=== PATIENT | male | born 1990 | race Caucasian/White ===

== ENCOUNTER 2018-04-09 07:13 | Day surgery (SDC) | payer OTHER ==
[~2018-04-09 07:13] MED LIST: Buffered Lidocaine 0.9% SYRIN* 5 ML/SYR SYRINGE INTRADERM ONE
[2018-04-09] MEDS ORDERED: Propofol* 10 MG/ML 20 ML BTL ONE (08:00)
[2018-04-09] MEDS ORDERED: Midazolam* 1 MG/ML 2 ML VIAL (2 MG) ONE (08:01)
[2018-04-09] MEDS ORDERED: fentaNYL* 50 MCG/ML 2 ML VIAL (100 MCG VIAL) ONE (08:01)
[2018-04-09] MEDS ORDERED: Ketorolac INJ* 30 MG/ML 1 ML VIAL IV PRN (08:07)
[2018-04-09] MEDS ORDERED: fentaNYL* 50 MCG/ML 2 ML VIAL (100 MCG VIAL) IV PRN (08:07)
[2018-04-09] MEDS ORDERED: Ondansetron INJ* 2 MG/ML VIAL IV PRN (08:07)
[2018-04-09] MEDS ORDERED: Naloxone* 0.4 MG/ML 1 ML VIAL IV PRN (08:07)
[2018-04-09] MEDS ORDERED: Ondansetron INJ* 2 MG/ML VIAL ONE (10:03)
[2018-04-09] MEDS ORDERED: DiMENhydriNATE IV* 50 MG/ML VIAL ONE (10:26)
[2018-04-09] MEDS ORDERED: DiMENhydriNATE IV* 50 MG/ML VIAL IV PUSH PRN (10:27)
[2018-04-09] MEDS ORDERED: Ketorolac INJ* 30 MG/ML 1 ML VIAL ONE (10:51)
[2018-04-09 12:02] VITALS: BP 114/76
[2018-04-09] MEDS ORDERED: Phenylephrine 2.5% OPTH.SOL* 2 ML BTL ONE (14:22)
[2018-04-09] MEDS ORDERED: BSS OPTH.SOL* BTL ONE (14:22)
[2018-04-09] MEDS ORDERED: Povidone Iodine 5% OPTH* 30 ML BTL ONE (14:22)
[2018-04-09] MEDS ORDERED: Tetracaine 0.5% OPTH.SOL 4 ML* 1 DROP BTL ONE (14:22)
[2018-04-09] MEDS ORDERED: Neomycin/Polymy/Dex OPHTH.OIN* 3.5 GM ONE (14:22)
--- NOTE | 2018-04-10 06:10 | OP ---
DATE OF OPERATION: 04/08/18 [facility] DATE OF : 89 SURGEON: Timur Rios MD. MANAGER MANAGED BACKUP SERVICES: None. ANESTHESIA: General. 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 OPERATIVE PROCEDURE: Recess each medial rectus muscle 6.0 mm, resect left lateral rectus muscle 5.5 mm. COMPLICATIONS: None. ESTIMATED BLOOD LOSS: Minimal. DESCRIPTION OF PROCEDURE: The patient was brought to the operating room and received general anesthesia. A drop of tetracaine and a drop of phenylephrine were placed in each eye. The patient was prepped and draped in the usual sterile fashion for ophthalmic surgery and attention was directed to the right eye where a speculum was placed. Forced ductions were performed and found to be normal. The eye was grasped in the inferonasal quadrant at the limbus and brought the superotemporal gaze. An inferonasal fornix incision was created through the conjunctivae with a Maxine scissor. Tenons capsule was violated and the medial rectus muscle was isolated on a Justice muscle hook. The conjunctivae was reflected over the surface of the hook and the muscle. The check ligament was opened. The muscle was cleaned with sharp and blunt dissection in the area of its insertion. A double-armed 6-0 Vicryl suture was woven to the muscle and locked at either end near its insertion. The muscle was disinserted from the globe. The muscle was inspected and found to be intact on the sutures. The original insertion site was grasped with interrupted locking forceps. Gentle cauterization was used to achieve hemostasis at this point. A tammy was made on the sclerae at 6.0 mm posterior to the original insertion. The muscle was recessed at this point and the suture was tied securely. Sutures were trimmed and the muscle was inspected. The muscle was found to be in good position with no active bleeding. The locking forceps were removed. The conjunctivae was closed with interrupted 6-0 gut sutures. The speculum was removed and placed into his left eye. Here the same procedure was performed on the medial rectus muscle, thus recessing at 6.0 mm. In addition the eye was then grasped in the inferotemporal quadrant and brought to superonasal gaze. Inferotemporal fornix incision was made to the conjunctivae with a Maxine scissor and the tenons capsule was violated. The lateral rectus muscle was isolated on a Lewis muscle hook. The conjunctivae was reflected over the surface of the hook and the muscle. The check ligament was opened. The muscle was cleaned near its insertion with sharp and blunt dissection. A second small hook was placed to retract the conjunctivae temporally, and the muscle was cleaned along its lateral aspect to approximately 9 mm posterior to the insertion. A second Lewis muscle hook was placed under the muscle and the small hooks were removed. A tammy was made on the muscle using a caliber measuring 5.5 mm posterior to the original insertion. A double arm 6-0 Vicryl was woven to the muscle at this located and locked at either end. The muscle hooks were removed. A Justice muscle clamp was placed across the muscle near its insertion. The muscle was disinserted from the globe using a Maxine scissor when the original insertion site was grasped with interrupted locking forceps. Hemostasis was achieved at this point with gentle cauterization. The sutures were then placed through the original insertion site and back up through the belly of the muscle at the location of the sutures within the muscle. The muscle was pulled with the clamp over the insertion site such that the suture complex was over the insertion site and the sutures were tied securely. The distal end of the muscle was resected with the Maxine scissor. Inspection revealed the muscle to be in good position along the original insertion site with no sagging or active bleeding. Sutures were trimmed. The conjunctivae was then closed with interrupted 6-0 gutt sutures. The speculum was removed. A drop tetracaine followed by Maxitrol were placed in each eye. The patient was awaken uneventfully and sent to the recovery room in stable condition with postoperative instructions and a followup appointment given. [id number]/[facility] #: [id number] DARYL
== END 2018-04-09 12:12 | disposition home or self-care (01) ==
LOC: OREAST 07:13
PROVIDERS: ATTEND Ophthalmology
DX: H50.012 Monocular esotropia, left eye (principal); Z87.891 Personal history of nicotine dependence; K21.9 Gastro-esophageal reflux disease without esophagitis
CPT/HCPCS: A9270-GY; J1240; J1885; J2250; J2405; J2704; J3010